=== PATIENT | male | born 1950 | race Caucasian/White ===

== ENCOUNTER 2019-02-05 10:24 | Inpatient (IN) | payer MEDICARE ==
[~2019-02-05] VITALS: Ht 182.9 cm; Wt 112.2 kg
--- NOTE | 2019-02-05 10:40 | NUR ---
PT AMBULATED TO ICU BED 2 IN STABLE CONDITION ACCOMPANIED BY EX ;PT A&O X4, ORIENTED TO ROOM AND CALL LIGHT SYSTEM;WT AND VS OBTAINED;PT REPORTS INCREASED NON-PRODUCTIVE COUGH OVER THE PAST FEW WEEKS AND INCREASED EDEMA TO BLE;PT WAS DIRECTLY ADMITTED BY ;PT DENIES ANY CURRENT PAIN OR DISCOMFORTS,PAIN SCALE AND REPORTING EDUCATED;ASSESSMENT COMPLETED;RESPIRATIONS EVEN AND UNLABORED ON RA,CLEAR/DIMINISHED LUNG SOUNDS NOTED,NON-PRODUCTIVE COUGH AT TIMES;ABDOMEN DISTENDED/SOFT ON PALPATION AND ACTIVE IN ALL 4 QUADRANTS,LAST BM 02/04/19;WEAK PEDAL PULSES WITH +4 EDMEA NOTED TO BLE,ENCOURAGED ELEVATION OF BLE;CARDIAC MONITORING IN PLACE READING SR 70'S-80'S;MULTIPLE ATTEMPTS MADE AT OBTAINING AN IV SITE, #22G STARTED TO LAC;ALLERGY BAND APPLIED;LUNCH TRAY PROVIDED;PT DENIES ANY ADDITIONAL NEEDS AT THIS TIME AND IS ENCOURAGED TO CALL FOR ASSISTANCE IF NEEDED;CALL LIGHT IN REACH;WILL CONTINUE TO MONITOR
[2019-02-05 11:06] VITALS: BP 134/73
--- NOTE | 2019-02-05 11:08 | NUR ---
RT AT BEDSIDE OBTAIN EKG AND ABG PER ORDER.
--- NOTE | 2019-02-05 11:13 | NUR ---
XRAY AT BEDSIDE
--- NOTE | 2019-02-05 11:21 | NUR ---
RT @BEDSIDE FOR ABG & EKG. PORT CXR COMPLETED.
--- NOTE | 2019-02-05 11:43 | NUR ---
VEIN FINDER REQUESTED FROM IVT AFTER 3 FAILED ATTEMPTS AT ESTABLISHING AN IV BETWEEN 2 STAFF.
[2019-02-05] MEDS ORDERED: ASPIRIN EC LOW81 MG PO (12:03)
[2019-02-05] MEDS ORDERED: FUROSEMIDE20 MG PO (12:05)
[2019-02-05] MEDS ORDERED: PRAVASTATIN40 MG PO (12:08)
[2019-02-05] MEDS ORDERED: HYDROCHLOROT25 MG PO (12:08)
[2019-02-05] MEDS ORDERED: LISINOPRIL20 MG PO (12:09)
[2019-02-05 12:32] LABS: HEMATOCRIT 39.4 % (39.0-50.0); HEMOGLOBIN 12.7 g/dl (14.0-18.0); IMMATURE GRANULOCYTES 0.2 % (0.0-5.0); MEAN CELL VOLUME 95.9 fL CALC (80.0-100.0); MEAN CORPUSCULAR HGB 30.9 pG CALC (26.0-32.0); MEAN CORPUSCULAR HGB CONC 32.2 g/L CALC (32.0-36.0); NEUT# 3.12 thou/uL (1.82-7.42); RED BLOOD COUNT 4.11 mill/uL (4.70-6.10); RED CELL DISTRI WIDTH 12.3 % (11.5-15.5)
[2019-02-05 12:46] LABS: ALBUMIN 4.1 g/dL (3.2-5.0); BILIRUBIN, TOTAL 0.4 mg/dL (0.0-1.4); CREATININE 1.7 mg/dL (0.7-1.3); POTASSIUM 4.5 mmol/l (3.5-5.1)
[2019-02-05 13:18] LABS: TSH, 3RD GENERATION 2.46 uIU/mL (0.47 - 4.68)
[2019-02-05 13:24] LABS: URINE BILIRUBIN - DIPSTICK NEGATIVE (NEGATIVE); URINE BLOOD DIPSTICK NEGATIVE (NEGATIVE); URINE CLARITY CLEAR; URINE COLOR YELLOW; URINE GLUCOSE - DIPSTICK NEGATIVE (NEGATIVE); URINE KETONE NEGATIVE (NEGATIVE); URINE LEUK ESTERASE NEGATIVE (Negative); URINE NITRITE - DIPSTICK NEGATIVE (Negative); URINE PH 6.5 (4.5-8.0); URINE PROTEIN - DIPSTICK NEGATIVE (NEG-TRACE); URINE UROBILINOGEN - DIPSTICK 0.2 E.U./dL (0.2)
[2019-02-05 13:30] VITALS: BP 130/82
--- NOTE | 2019-02-05 14:00 | NUR ---
PT APPEARS TO BE SLEEPING IN SEMI FOWLERS POSITION;NO S/S OF DISTRESS NOTED;RESPIRATIONS EVEN AND UNLABORED ON RA;CARDIAC MONITORING IN PLACE;ALL SAFETY PRECAUTIONS REMAIN IN PLACE WITH CALL LIGHT IN REACH;WILL CONTINUE TO MONITOR
--- NOTE | 2019-02-05 15:30 | NUR ---
PT RESTING IN SEMI FOWLERS POSITION PLAYING ON HIS PHONE;RESPIRATIONS EVEN AND UNLABORED ON RA;PT DENIES ANY CURRENT PAIN OR DISCOMFORTS;CARDIAC MONITORING IN PLACE;IV SITE TO LAC PATENT;URINAL EMPTIED FREQUENTLY OF CLEAR/YELLOW URINE;ASSESSMENT REMAINS UNCHANGED AT THIS TIME;ENCOURAGED PT TO CALL FOR ASSISTANCE IF NEEDED;CALL LIGHT IN REACH;WILL CONTINUE TO MONITOR
[2019-02-05 15:55] VITALS: BP 139/82
--- NOTE | 2019-02-05 16:18 | NUR ---
TUAN HANEY,ANRP AT BEDSIDE
--- NOTE | 2019-02-05 18:05 | NUR ---
VISITOR AT BEDSIDE
[2019-02-05 18:32] LABS: MAGNESIUM 2.1 mg/dL (1.6-2.3)
--- NOTE | 2019-02-05 19:15 | NUR ---
REPORT GIVEN BY DANIEL SIERRA. PATIENT ALERT AND ORIENTED WITH DAUGHTER PRESENT AT BEDSIDE. RESP EVEN AND UNLABORED, PATIENT STATES HE IS STILL HAVING SOME TIGHTNESS WHEN HE BREATHES. NO S/S OF DISTRESS NOTED. GENERAL EDEMA PRESENT. PETAL PLUSES PRESENT. PLAN OF CARE REVIEWED. PATIENT INFORMED TO CALL WITH ANY QUESTIONS OR CONCERNS.
[2019-02-05 19:33] VITALS: BP 133/69
--- NOTE | 2019-02-05 23:12 | NUR ---
PATIENT AWAKE WATCHING TV. RESP EVEN AND UNLABORED. NO S/S OF DISTRESS NOTED.
[2019-02-06] VITALS: BP 122/79
--- NOTE | 2019-02-06 04:09 | NUR ---
PATIENT RESTING WITH EYES CLOSED. RESP EVEN AND UNLABORED. NO S/S OF DISTRESS NOTED.
[2019-02-06 05:29] VITALS: BP 126/80
[2019-02-06 05:30] LABS: ALBUMIN 4.6 g/dL (3.2-5.0); CREATININE 1.7 mg/dL (0.7-1.3); POTASSIUM 5.1 mmol/l (3.5-5.1)
--- NOTE | 2019-02-06 07:15 | NUR ---
awake in bed; no apparent distress noted; pt offers no complaints; assessment completed at this time; pt alert and oriented; denies pain; no n/v noted; resp even and unlabored; sob with exertion noted; lungs clear/ diminished bases; skin color wnl; ra; hr reg; wk pedal pulses; 2+ generalized edema noted; sr on monitor; abd soft/ distended with bs present; no bm noted per scientific writer; voiding clear yellow urine without complication; urinal at bedside; #22 flushed and patent to lac; no redness or edema noted at site; plan of care/ am meds explained; call light within reach; will continue to monitor
[2019-02-06 08:00] VITALS: BP 126/79
--- NOTE | 2019-02-06 08:03 | NUR ---
awake in bed; offers no complaints; no apparent distress noted; sr on monitor; call light within reach; will continue to monitor
[2019-02-06 09:45] LABS: ALBUMIN 3.7 g/dL (3.2-5.0); BILIRUBIN, TOTAL 0.5 mg/dL (0.0-1.4); CREATININE 1.6 mg/dL (0.7-1.3); POTASSIUM 4.4 mmol/l (3.5-5.1); TOTAL PROTEIN 6.7 g/dL (6.3-8.2)
--- NOTE | 2019-02-06 10:05 | NUR ---
KATHERINE Ramirez present at bedside to assess pt and discuss plan of care
--- NOTE | 2019-02-06 10:20 | NUR ---
awake in bed; offers no complaints; no apparent distress noted; sr on monitor; iv intact; pt noted conversing on cell phone; call light within reach; will continue to monitor
[2019-02-06 12:00] VITALS: BP 138/85
--- NOTE | 2019-02-06 12:19 | NUR ---
awake in chair conversing on cell phone; no apparent distress noted; iv intact; offers no complaints; call light within reach; will continue to monitor
--- NOTE | 2019-02-06 12:45 | NUR ---
Dr Rehman present at bedside to discuss plan of care
--- NOTE | 2019-02-06 14:00 | NUR ---
no apparent distress noted; iv intact; sr on monitor; st with activity; will continue to monitor
[2019-02-06 16:00] VITALS: BP 127/71
--- NOTE | 2019-02-06 16:20 | NUR ---
awake in bed; offers no complaints; no apparent distress noted; sr on monitor; iv intact; call light within reach; will continue to monitor
--- NOTE | 2019-02-06 18:21 | NUR ---
awake in chair; offers no complaints; no apparent distress noted; iv intat; deny needs; sr on monitor; call light within reach
--- NOTE | 2019-02-06 19:05 | NUR ---
PATIENT LAYS WITH HOB 45 DEGREES. ALERT AND ORIENTED X4. ON ROOM AIR. NO SOB NOTED. HEAD TO TOE NURSING ASSESSMENT PERFORMED, SEE CHARTING. LAC 22 G IV INTACT AND SALINE LOCKED. NO COMPLAINTS. NO NEEDS AT THIS TIME. POC FOR TONIGHT DISCUSSED. SR ON TELEMETRY. REPORTS HE IS ABLE TO AMBULATE INDEPENDENTLY. EDUCATED ON CARE FOR CHF, UNDERSTANDS. AFEBRILE. CALL LIGHT WITHIN REACH. SELF REPSOITIONS.
[2019-02-06 20:00] VITALS: BP 134/80
--- NOTE | 2019-02-06 21:46 | NUR ---
PATIENT ABLE TO TOLERATE BEDTIME MEDICATIONS. VOIDS IN URINAL, YELLOW AND CLEAR URINE OBSERVED, NO MALODOR. CUP OF ICED WATER PROVIDED. NO OTHER NEEDS AT THIS TIME. CALL LIGHT WITHIN REACH.
--- NOTE | 2019-02-06 23:58 | NUR ---
PATIENT GIVEN BUMEX SCHEDULED. BP CUFF READJUSTED. URINAL EMPTIED. NO ACUTE DISTRESS SHOWN. CALL LIGHT WITHIN REACH.
[2019-02-07] VITALS (9 sets, daily range): BP systolic 110–134; BP diastolic 66–84
--- NOTE | 2019-02-07 00:54 | NUR ---
PATIENT RESTS WITH EYES CLOSED. NO ACUTE DISTRES SHOWN. NO NEEDS AT THIS TIME. CALL LIGHT WITHIN REACH.
--- NOTE | 2019-02-07 02:20 | NUR ---
PATIENT AWAKE, USES URINAL TO VOID. NO NEEDS ATHIS TIME. NO ACUTE DISTRESS SHOWN. CALL LIGHT WITHIN REACH.
--- NOTE | 2019-02-07 04:08 | NUR ---
PATENT RESTS WITH EYES CLOSED. NO ACUTE DISTRESS SHOWN. CALL LIGHT WITHIN REACH.
[2019-02-07 05:55] LABS: POTASSIUM 4.6 mmol/l (3.5-5.1)
--- NOTE | 2019-02-07 06:24 | NUR ---
PT RESTS WITH EYES CLOSED, EASILY AROUSABLE. URINAL EMPTIED. NEW ICED CUP OF WATER PROVIDED. NO NEEDS AT THIS TIME.
--- NOTE | 2019-02-07 07:10 | NUR ---
pt awake in bed; no apparent distress noted; pt offers no complaints; assessment completed at this time; pt alert and oriented; denies pain; no n/v noted; resp even and unlabored; lungs clear/ diminished bases; skin color wnl; ra; hr reg; wk pedal pulses; 2+ edema noted to ble; abd soft with bs present; sr on monitor; no bm noted per policy writer sales; voiding clear yellow urine without complication; urinal at bedside; #22 flushed and patent to lac; no redness or edema noted at site; am meds/ plan of care explained; call light within reach; will continue to monitor
--- NOTE | 2019-02-07 08:13 | NUR ---
awake in chair; no apparent distress noted; pt offers no complaints; sr on monitor; call light within reach; will continue to monitor
[2019-02-07 09:13] LABS: ALBUMIN 4.4 g/dL (3.2-5.0); BILIRUBIN, TOTAL 0.6 mg/dL (0.0-1.4); TOTAL PROTEIN 7.8 g/dL (6.3-8.2)
--- NOTE | 2019-02-07 10:05 | NUR ---
awake; am care per self; no apparent distress noted; pt offers no complaints; call light within reach; will continue to monitor
--- NOTE | 2019-02-07 12:10 | NUR ---
awake sitting on side of bed eating lunch; no apparent distress noted; pt offers no complaints; iv intact; sr on monitor; call light within reach; will continue to monitor
--- NOTE | 2019-02-07 14:35 | NUR ---
Dr Rehman and ARLEEN Duffy present at bedside to assess pt and discuss cow
--- NOTE | 2019-02-07 16:11 | NUR ---
resting in bed with eyes closed; no distress noted; sr on monitor; iv intact; call light within reach; will continue to monitor
--- NOTE | 2019-02-07 18:15 | NUR ---
pt awake in bed; offers no complaints; no apparent distress noted; resp even and unlanbored; iv intact; no redness or edema noted at site; sr on monitor; call light within reach
--- NOTE | 2019-02-07 18:45 | NUR ---
REPORT FROM Kuldeep GONZALEZ RN. ASSUMED PT. CARE.
--- NOTE | 2019-02-07 19:28 | NUR ---
PT. FOUND AWAKE, ALERT, ORIENTED X 3. LUKE. STANDING AT BEDSIDE HE HAS JUST VOIDED. APPROX 250 ML OUT AT THIS TIME. RESPS EVEN AND UNLABORED. HR IN THE 80'S, SINUS. CALL LIGHT WITHIN REACH. LUNGS CTA. DENIES COMPLAINTS OF PAIN OR NEED. 2+ EDEMA AT THIS TIME. DISTIL PULSES INTACT. LUKE. EDWIN. VOICES NO COMPLAINTS OR NEEDS AT THIS TIME. AFEBRILE. BOWEL SOUND ACTIVE THROUGHOUT. WILL CONTINUE TO CLOSELY MONITOR.
--- NOTE | 2019-02-07 21:12 | NUR ---
PT. MEDICATED PER PHYSICIAN ORDERS. PROVIDED WITH CUP OF WATER AT THIS TIME. PT. HAS VOIDED APPROXIMATELY 400 CC SINCE COMING ON SHIFT. PT. DENIES OTHER COMPLAINTS OR NEEDS AT THIS TIME. RESPS REMAIN EVEN AND UNLABORED. SKIN REMAINS WARM AND DRY.
[2019-02-08] VITALS (7 sets, daily range): BP systolic 108–123; BP diastolic 59–81
--- NOTE | 2019-02-08 00:45 | NUR ---
PT. RESTING IN BED IN NO DISTRESS. RESPS REMAIN EVEN AND UNLABORED. SKIN REMAINS WARM AND DRY. VOICES NO COMPLAINTS OR NEEDS. BP/HR REMAINS STABLE. SPO2 93% ON RA. WILL CONTINUE TO CLOSELY MONITOR.
--- NOTE | 2019-02-08 00:56 | NUR ---
PT. STABLE. VOIDED 450 CC URINE AT THIS TIME. REMAINS AFEBRILE WITHOUT COMPLAINTS OR NEEDS.
--- NOTE | 2019-02-08 04:00 | NUR ---
PT. REMAINS EASILY AROUSABLE TO LIGHT VERBAL STIMULI. AFEBRILE AT 97.1. RESPS REMAIN EVEN AND UNLABORED. HR DOES ELEVATE WHEN HE STANDS UP TO URINATE INTO THE 110-120'S SINUS TACH. DENIES COMPLAINTS OF PAIN OR NEED AT THIS TIME. LAB AT BEDSIDE TO DRAW PT.
[2019-02-08 04:50] LABS: ALBUMIN 4.1 g/dL (3.2-5.0); BILIRUBIN, TOTAL 0.6 mg/dL (0.0-1.4); POTASSIUM 4.4 mmol/l (3.5-5.1); TOTAL PROTEIN 7.3 g/dL (6.3-8.2)
--- NOTE | 2019-02-08 07:20 | NUR ---
PT RESTING IN BED WITH EYES CLOSED. AROUSES TO VERBAL STIMULI. PT IS ALERT AND ORIENTED X3. SHIFT ASSESSMENT COMPLETED AT THIS TIME. IV PATENT X1. CALL LIGHT IN REACH. WILL CONTINUE TO MONITOR.
--- NOTE | 2019-02-08 07:30 | NUR ---
PT SET UP FOR AM MEAL
--- NOTE | 2019-02-08 09:41 | NUR ---
PT RESTING IN BED AWKAE. RESP ARE EVEN AND UNLABORED. NO DISTRESS NOTED. CALL LIGHT IN REACH. WILL CONTINUE TO MONITOR.
--- NOTE | 2019-02-08 10:00 | NUR ---
RADIOLOGY AT BEDSIDE COMPLETING ECHO
--- NOTE | 2019-02-08 11:38 | NUR ---
PT SET UP ON SIDE OF BED FOR NOON MEAL
--- NOTE | 2019-02-08 14:08 | NUR ---
PT RESTING IN BED WATCHING TV. RESP ARE EVEN AND UNLABORED. NO DISTRESS NOTED. CALL LIGHT IN REACH. WILL CONTINUE TO MONITOR.
--- NOTE | 2019-02-08 16:12 | NUR ---
IV site discontinued, cath intact. No edema , no redness, voices no discomfort.
--- NOTE | 2019-02-08 17:39 | NUR ---
PT AWAITING DISCHARGE. FAMILY AT BEDSIDE.
--- NOTE | 2019-02-08 18:05 | NUR ---
Discharge instructions given. Patient verbalizes understanding of same. Discharged in stable condition via Ambulatory to Home with family. All belongings sent with pt.
== END 2019-02-08 18:05 | disposition home or self-care (01) | DRG 291 ==
LOC: ICU 10:24
PROVIDERS: Internal Medicine Nephrology; Nurse Practitioner Family; ADMIT Internal Medicine; ATTEND Internal Medicine
DX: I13.0 Hypertensive heart and chronic kidney disease with heart failure and stage 1 through stage 4 chronic kidney disease, or unspecified chronic kidney disease (principal); I50.23 Acute on chronic systolic (congestive) heart failure; N18.3 Chronic kidney disease, stage 3 (moderate); E78.5 Hyperlipidemia, unspecified; Z91.11 Patient's noncompliance with dietary regimen; Z87.891 Personal history of nicotine dependence
CPT/HCPCS: J1650